=== PATIENT | male | born 1980 | race Caucasian/White ===

== ENCOUNTER 2016-08-26 14:40 | Emergency (ER) | payer MEDICARE ==
[~2016-08-26 14:40] MED LIST: ALPRAZOLAM PO; ALPRAZOLAM0.5 M2 PO; ATIVAN1 M2 PO; AZULFIDINE500 MG PO; CELEXA20 MG PO; CIPRO750 MG; CITALOPRAM HBR40 M1 PO; CITALOPRAM HBR40 MG; CLONAZEPAM0.5 M1 PO; CYCLOBENZAPRINE10 M1 PO; DICLOFENAC POTA50 M1 PO; FOLIC ACID1 MG; FOLIC ACID1 MG PO; GARAMYCIN5 ML; IBUPROFEN800 M1 PO; IMITREX100 MG; IMITREX100 MG PO; IMURAN50 MG PO; MERCAPTOPURINE50 MG PO; METRONIDAZOLE500 MG; NORCO 5-325 TA1 EACH PO; PERCOCET 10 MG/1 TAB PO; PERCOCET 7.5-31 EAC1 PO; PERCOCET 7.5/321 TA1 PO; PREDNISONE10 MG PO; PREDNISONE20 M1 PO; PROTONIX40 M2 PO; ROWASA RC; SULFASALAZINE500 M2 PO; SULFASALAZINE500 MG; SULFASALAZINE500 MG PO; TRAZODONE HCL100 M1 PO; XANAX0.5 MG; [UNRECOGNIZED DRUG - REMARK]
[2016-08-26] MEDS ORDERED: BACLOFEN10 M1 PO (14:47)
[2016-08-26] MEDS ORDERED: PREDNISONE20 M1 PO (14:48)
[2016-08-26] MEDS ORDERED: SIMPONI SC (14:50)
[2016-08-26] MEDS ORDERED: CHOLESTYRAMINE P4 GM PO (14:52)
[2016-08-26] MEDS ORDERED: TRAMADOL HCL50 M2 PO (16:03)
[2016-12-09] MEDS ORDERED: ENTYVIO300 MG IV (23:45)
[2016-12-11] MEDS ORDERED: NORCO 5-325 TA1 EACH PO (12:23)
[2016-12-11] MEDS ORDERED: BACTRIM DS TAB1 EAC2 PO (12:25)
== END 2016-08-26 16:30 ==
LOC: EDMED 14:40
PROC: 2W3RXYZ Immobilization of Left Lower Leg using Other Device (ICD-10-PCS; principal; 2016-08-26)
DX: S93.402A Sprain of unspecified ligament of left ankle, initial encounter (principal); F17.210 Nicotine dependence, cigarettes, uncomplicated; X50.1XXA Overexertion from prolonged static or awkward postures, initial encounter; Y93.39 Activity, other involving climbing, rappelling and jumping off; Y92.009 Unspecified place in unspecified non-institutional (private) residence as the place of occurrence of the external cause; Y99.8 Other external cause status